=== PATIENT | female | born 1995 | race Caucasian/White ===

== ENCOUNTER → 2020-08-08 08:32 | Outpatient (BNVA) | payer BC, SELFPAY | PROVIDERS: PCP Internal Medicine; Visit Provider Advanced Practice Midwife ==

== ENCOUNTER 2021-08-12 08:55 | Outpatient (REF) | payer BC, SELFPAY ==
[2021-08-12 18:15] LABS: CT PCR NOT DETECTED (Not Detect.); NG PCR NOT DETECTED (Not Detect.)
[2021-08-13 08:41] LABS: BV Int Neg Control Negative (Negative); BV Int Pos Control Positive (Positive)
== END 2021-08-12 08:56 | disposition home or self-care (01) ==
LOC: HO.LAB 08:55
PROVIDERS: PCP Internal Medicine; Visit Provider Advanced Practice Midwife
DX: Z01.411 Encounter for gynecological examination (general) (routine) with abnormal findings (principal); R10.2 Pelvic and perineal pain; Z20.2 Contact with and (suspected) exposure to infections with a predominantly sexual mode of transmission
CPT/HCPCS: 87480; 87491; 87510; 87591; 87660; 88142

== ENCOUNTER → 2021-09-10 14:43 | Outpatient (BNVA) | payer BC, SELFPAY | PROVIDERS: Visit Provider Advanced Practice Midwife | DX: Z30.433 Encounter for removal and reinsertion of intrauterine contraceptive device (principal); L70.9 Acne, unspecified | CPT/HCPCS: 58300; 58301; 81025; J7296 ==

== ENCOUNTER 2023-05-06 13:59 | Outpatient (AMB) | payer BC, SELFPAY ==
--- NOTE | 2023-05-06 14:01 | A.OFFVIS_ITS ---
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 Doing well with no concerns. Doing well with her Mirena IUD. She tries to eat healthy and stays active with exercise. Currently is sexually active. She denies vaginal itching and irritation. STI screening offered; she declines. Denies family history of breast, ovarian or colon cancer. 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 Sexual orientation: Straight/Heterosexual Gender identity: Female Female Reproductive History Menstrual Age of Menarche: 14 control method: progestin IUCD (Kyleena 08/2021) Total pregnancies: 0 Date of last pap smear: 08/12/21 (neg) Review of Systems Const All systems reviewed & are unremarkable except as noted in HPI and below Reports as per HPI Eyes Reports no additional complaints ENT Reports no additional complaints Card Reports no additional complaints Resp Reports no additional complaints GI Reports as per HPI and Reports no additional complaints Reports as per HPI Musc Reports no additional complaints Skin/Breast Reports as per HPI Neuro Reports no additional complaints Psych Reports no additional complaints Endo Reports no additional complaints Jovanni/Lymph Reports no additional complaints Aller/Immun Reports no additional complaints Physical Exam Vital Signs: Last Vital Signs BP 102/66 05/06/23 14:02 BMI result Body Mass Index 24.9 Const General: cooperative, healthy appearing, no acute distress, well developed and alert Orientation/consciousness: patient oriented x3 HEENT Head: Yes normal to inspection Eyes General: appearance normal, both eyes and all related structures Neck Neck: Yes normal visual inspection Thyroid: Thyroid normal Chest Chest palpation & inspection: normal inspection of the chest and other (no puckering, dimpling, peau de orange, retraction, discharge, masses) Breast/axilla inspection: normal inspection of the breasts Breast/axilla palpation: normal palpation of the breasts Resp Effort & Inspection: normal respiratory effort GI Inspection: Yes normal to inspection Palpation (GI): Soft to palpation Rectal Exam - Female: deferred General: Yes bladder normal to palpation External Female Exam: normal external appearance and normal appearance of the urethra Speculum Exam - Vagina: normal appearance of the vagina, normal palpation and normal vaginal discharge Speculum Exam - Cervix: normal appearance of the cervix, normal palpation and Other cervical findings present (IUD strings present) Bimanual exam- vagina & uterus: normal bimanual exam, normal palpation, uterine size normal, bladder normal to palpation, normal palpation and non-tender Bimanual Exam- Adnexa, other: no masses Skin General skin exam: no rashes or lesions noted Rashes: no rashes Neuro General: patient oriented x3 Cognition (Neuro): normal cognition Extrem General: Yes normal to inspection Psych Attitude: cooperative Thought process: Normal thought process present Assessment & Plan Assessment & Plan (1) Encounter for well woman exam with routine gynecological exam: Code(s): Z01.419 - Encounter for gynecological examination (general) (routine) without abnormal findings Plan Discussed: Current recommendations for pap smears per ASCCP guidelines. Breast awareness and periodic breast exams. Maintain a healthy lifestyle including a well balanced diet and routine exercise. All of her questions and concerns were addressed to the best of my ability. RTO in one year for annual obgyn hospitalist physician examination. Coding Level of Care Code New Pt Prev Care 18-39yr(68440 Diagnoses Encounter for well woman exam with routine gynecological exam Z01.419
[2023-05-06 14:02] VITALS: BP 102/66; BMI 24.9
== END 2023-05-06 14:29 | disposition home or self-care (01) ==
PROVIDERS: Visit Provider Advanced Practice Midwife
DX: Z01.419 Encounter for gynecological examination (general) (routine) without abnormal findings (principal)
CPT/HCPCS: 99385; 99395

== ENCOUNTER → 2023-05-06 13:59 | Outpatient (BNVA) | payer BC, SELFPAY | PROVIDERS: Visit Provider Advanced Practice Midwife ==

== ENCOUNTER 2024-12-20 14:58 | Outpatient (AMB) | payer BC, SELFPAY ==
--- NOTE | 2024-12-20 15:04 | A.OFFVIS_ITS ---
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 Intake Note: here for annual no complaints Information Interpreted: clinical only (Rukhsana) Accompanied by: Self / Same As Patient Allergies No Known Allergies (No Known Allergies*) Allergy (Verified 12/20/24 15:08) Medication List - Last Reconciled 12/20/24 by Keesha Miramontes LPN levonorgestrel (Kyleena) intrauterine spironolactone 100 mg PO DAILY Is last menstrual period known: Yes Last menstrual period: 12/19/24 Post menopausal: No Patient : No Followed by:: Keesha Miramontes LPN Do you need a note to return to daycare/school/sports/work: No HPI Comments Details: Patient is a premenopausal woman presenting for annual examination. Doing well with no switching clerk concerns. Kyleena user. Currently is sexually active. She denies vaginal itching or irritation. STI screening offered; she declined. She tries to eat healthy and stays active with exercise. Denies family history of breast, ovarian or colon cancer. Last pap smear 2021, negative. PFSH Medical History IUD (intrauterine device) in place Acne Surgical History Hx of knee surgery Family History Father HTN (hypertension) Mother No problems noted. 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 Sexual orientation: Straight/Heterosexual Gender identity: Female Female Reproductive History Menstrual Age of Menarche: 14 Date of last menstrual period: 12/19/24 control method: progestin IUCD (kyleena ) Total pregnancies: 0 Number of Living Children: 0 Date of last pap smear: 08/13/21 History of abnormal pap smear: No History of STI: No History of abnormal mammogram: No (na) Review of Systems Const All systems reviewed & are unremarkable except as noted in HPI and below Reports as per HPI Eyes Reports no additional complaints ENT Reports no additional complaints Card Reports no additional complaints Resp Reports no additional complaints GI Reports as per HPI and Reports no additional complaints Reports as per HPI Musc Reports no additional complaints Skin/Breast Reports as per HPI Neuro Reports no additional complaints Psych Reports no additional complaints Endo Reports no additional complaints Jovanni/Lymph Reports no additional complaints Aller/Immun Reports no additional complaints Physical Exam Vital Signs: Last Vital Signs BP 106/68 12/20/24 15:06 BMI result Body Mass Index 26.2 Const General: cooperative, healthy appearing, no acute distress, well developed and alert Orientation/consciousness: patient oriented x3 HEENT Head: Yes normal to inspection Eyes General: appearance normal, both eyes and all related structures Neck Neck: Yes normal visual inspection Thyroid: Thyroid normal Chest Chest palpation & inspection: normal inspection of the chest and other (no puckering, dimpling, peau de orange, retraction, discharge, masses) Breast/axilla inspection: normal inspection of the breasts Breast/axilla palpation: normal palpation of the breasts Resp Effort & Inspection: normal respiratory effort GI Inspection: Yes normal to inspection Palpation (GI): Soft to palpation Rectal Exam - Female: deferred General: Yes bladder normal to palpation External Female Exam: normal external appearance and normal appearance of the urethra Speculum Exam - Vagina: normal palpation and vaginal bleeding Speculum Exam - Cervix: normal palpation and Other cervical findings present (IUD strings at the os) Bimanual exam- vagina & uterus: normal bimanual exam, normal palpation, uterine size normal, bladder normal to palpation, normal palpation and non-tender Bimanual Exam- Adnexa, other: no masses OB/external & speculum: vaginal bleeding Skin General skin exam: no rashes or lesions noted Rashes: no rashes Neuro General: patient oriented x3 Cognition (Neuro): normal cognition Extrem General: Yes normal to inspection Psych Attitude: cooperative Thought process: Normal thought process present Assessment & Plan Assessment & Plan (1) Encounter for annual routine gynecological examination: Code(s): Z01.419 - Encounter for gynecological examination (general) (routine) without abnormal findings Category: Medical Plan Discussed: Current recommendations for pap smears per ASCCP guidelines. Pap obtained. Breast awareness and periodic breast exams. Maintain a healthy lifestyle including a well balanced diet and routine exercise. Patient verbalizes understanding and agrees to the plan of care. She was given opportunity to ask questions and all questions were answered to the best of my ability. RTO in one year for annual switching clerk examination. This note is constructed using voice recognition software. While every effort has been made to ensure accuracy, digital forensic analyst errors may have been included. Coding Level of Care Code Est Pt Prev Care 18-39y(47481) Diagnoses Encounter for annual routine gynecological examination Z01.419
[2024-12-20 15:06] VITALS: BP 106/68; BMI 26.2
--- OUTSIDE RECORDS SUMMARY | 2024-12-20 15:33 | XMS_ITS | Clinical Summary ---
Author Organization [facility] ity Address [address] [place] [address] Care Team Providers Care Paper Box Maker Name Role Phone Lala Aguirre MD Primary Care Provider Unava ilable Social History Tobacco Use Types Packs/Day Years Used Date Smoking Tobacco: Never Assessed Comments Unknown Sex and Gender Information Value Date Recorded Sex Assigned at Not on file Legal Sex Female 3:28 AM EST Gender Identity Not on file Sexual Orientation Not on file Plan of Treatment Health Maintenance Due Date Last Done Comments DTaP,Tdap,and Td Vaccines (1 - Tdap) 01/29/2016 Hepatitis B Vaccines (1 of 3 - 19+ 3-dose series) 01/29/2016 Cervical Cancer Screening: P ap Smear 2018 COVID-19 Vaccine ( - 2023-2 5 season) 2024 Depression Screening 05/31/2024 Influenza Vaccine (#1) 2025 HIB Vaccines Aged Out No longer eligi ble based on patient's age to complete this topic HPV Vaccines Aged Out No longer eligi ble based on patient's age to complete this topic Hepatitis A Vaccines Aged Out No long er eligible based on patient's age to complete this topic IPV Vaccines Aged Out No longer eligi ble based on patient's age to complete this topic MMR Vaccines Aged Out No longer eligi ble based on patient's age to complete this topic Meningococcal ACWY Vaccine Aged Out N o longer eligible based on patient's age to complete this topic Meningococcal B Vaccine Aged Out No l onger eligible based on patient's age to complete this topic Pneumococcal Vaccine: Pediat rics (0 to 5 Years) and At-Risk Patients (6 to 49 Years) Aged Out No longer eligible b ased on patient's age to complete this topic RSV Immunization Patients Un cely 20 months Aged Out No longer eligible b ased on patient's age to complete this topic Varicella Vaccines Aged Out No longer eligible based on patient's age to complete this topic Care Teams Paper Box Maker Relationship Specialty Start Date End Date Lala Aguirre MD PCP - General Internal Medicine 01/14/17
--- OUTSIDE RECORDS SUMMARY | 2024-12-20 15:33 | XMS_ITS | Clinical Summary ---
Author Organization [facility] Address [address] [place] [address] Care Team Providers Care Recyclable Products Sorter Name Role Phone Unknown Pcp, Non Rmg Primary Care Provider Unava ilable Allergies No known active allergies Medications No known medications Active Problems No known active problems Resolved Problems Problem Noted Date Diagnosed Date Resolved Date Asthma 10/27/2012 01/16/2015 Overview (04/26/2015): Allergic rhinitis 03/05/2010 01/16/2015 Overview (04/26/2015): Immunizations Immunization Administration Dates Next Due DTP 03/30/2001, 8,1997,06/01,1997 HIB (PRP-T) 01/29/1998, 8,1997,03/30 HPV4 (Gardasil 4) 01/17/2014,11/15/2013 HPV9 (Gardasil 9) 01/16/2015 Hep A (pedi) 05/08/2011,03/05/2010 Hep B - 1997,1997,1997 IPV 03/30/2003,01/29/1998,1997 Influenza (SEASONAL) - 03/05/2010,02/13/2009 Influenza,injectable,quad,preservative 1 MMR 03/30/2001,01/29/1998 Meningococcal ACWY (Menactra) 01/16/2015, 999 OPV, Trivalent (Admin Before 08/30/2015) 7 PPD/TST (Tuberculin Skin Test) 05/07/1998 State H1N1 Vaccine,injection 05/02/2009 Td (adult), adsorbed 06/04/2006 Tdap - 10/27/2012 Varicella 02/13/2009,01/29/1998 Family History Relation Name Status Comments Brother Alive Father Alive Mother Alive Social History Tobacco Use Types Packs/Day Years Used Date Smoking Tobacco: Never Alcohol Use Standard Drinks/Week Comments No 0 (1 standard drink = 0.6 oz pur e alcohol) Comments Unknown Sex and Gender Information Value Date Recorded Sex Assigned at Not on file Legal Sex Female 8:54 PM EST Gender Identity Not on file Sexual Orientation Not on file Last Filed Vital Signs Vital Sign Reading Time Taken Comments Blood Pressure 124/64 01/16/2015 1:33 PM EDT Pulse - - Temperature 36.8 C (98.3 F) 03/13/2008 9:50 AM EDT Respiratory Rate - - Oxygen Saturation - - Inhaled Oxygen Concentration - - Weight 69.4 kg (153 lb) 01/16/2015 1:33 PM EDT Height 168.9 cm (5' 6.5 ) 01/16/2015 1:33 PM EDT Body Mass Index 24.32 01/16/2015 1:33 PM EDT Plan of Treatment Health Maintenance Due Date Last Done Comments Hepatitis C Screening 1997 Pap Smear 2013 DTaP/Tdap/Td (7 - Td or Tdap) 10/27/2022 10/27/2012, 06/04/2006, 03/30/2001, Additional history exists COVID-19 Vaccine ( season) 2024 Influenza (#1) 2025 05/08/2011, 1010/2009, 02/13/2009 Zoster (Shingrix) (1 of 2) 2047 02/13/2009, Hep B Completed 1997, 100 07/1996, 1997 Hib Completed 01/29/1998, 07/02, 1997, Additional history exists Hep A Completed 05/08/2011, 03/05/2010 HPV Vaccine Completed 01/16/2015, 12/30, 11/15/2013 Meningococcal ACWY Completed 01/16/2015, 1999 Chlamydia Discontinued 01/17/2015 Pneumococcal Aged Out No longer eligi ble based on patient's age to complete this topic Procedures * Due to [place] law, this organization might not be sharing negative HIV tests. Procedure Name Priority Date/Time Associated Diagnosis Comments GENPROBE APTIMA GC/CHLAM Routine 01/17/2015 8:41 PM EDT from Last 3 Months or Most Recently Relevant to Health Maintenance Results * Due to [place] law, this organization might not be sharing negative HIV tests. * GENPROBE APTIMA GC/CHLAM (01/17/2015 8:41 PM EDT) GENPROBE APTIMA GENPROBE APTIMA CHLAMYDIA Negative NEGATIVE [facility] GENPROBE APTIMA GENPROBE APTIMA GC Negative NEGATIVE [facility] 01/17/2015 8:41 PM EDT 01/17/2015 8:57 PM EDT us Unknown Provider [facility] Final R esult [facility] [address] [place] [address] from Last 3 Months or Most Recently Relevant to Health Maintenance Insurance MEDICAID Care Teams Recyclable Products Sorter Relationship Specialty Start Date End Date Unknown Pcp, Non Rmg PCP - General 01/22/16
== END 2024-12-20 15:35 | disposition home or self-care (01) ==
LOC: HO.HWS 14:59
PROVIDERS: Visit Provider Advanced Practice Midwife
DX: Z01.419 Encounter for gynecological examination (general) (routine) without abnormal findings (principal)
CPT/HCPCS: 99395; 99459

== ENCOUNTER 2024-12-20 14:58 | Outpatient (REF) | payer BC, SELFPAY | END 2024-12-20 14:59 | disposition home or self-care (01) | LOC: HO.LNP 14:58 | PROVIDERS: Visit Provider Advanced Practice Midwife | DX: Z01.419 Encounter for gynecological examination (general) (routine) without abnormal findings (principal); Z79.899 Other long term (current) drug therapy | CPT/HCPCS: 88175 ==